=== PATIENT | female | born 1990 | race African-American/Black ===

== ENCOUNTER 2018-10-05 09:39 | Emergency (ER) | payer OTHER, MEDICAID ==
[~2018-10-05] VITALS: Ht 170.2 cm; Wt 79.8 kg
[~2018-10-05 09:39] MED LIST: OXCA300T19 PO
[2018-10-05] MEDS ORDERED: IBUPROFEN 400 MG TABLET. PO ONE (10:00)
--- NOTE | 2018-10-05 10:19 | PHYS DOC ---
Past Medical History Past Medical History: Seizure Past Surgical History: Other Additional Past Surgical Histo: Left ear Alcohol Use: None Drug Use: None Adult General Chief Complaint Chief Complaint: LOWEREXTREMITY INJURY HPI HPI 27-year-old female presents to ER via POV for complaints of tripping over her niece 2 days ago causing her to fall onto a tiled floor. Patient reports since she has had mid to lower back pain and of right hip pain. Pt denies striking her head or having any head pain, seizures, dizziness, or lightheadedness. Patient reports she has had some intermittent right side neck pain denying difficulty with range of motion. Patient reports she has had intermittent right knee pain since the fall denies any difficulty of range of motion. Patient denies swelling in extremities. Patient denies open wounds. She reports she took Advil 200 mg at 7:30 this morning denying any other [id number] medications for pain. Pt reports she has broke her tailbone in past. Pt denies bowel or bladder incontinence, saddle anesthesia, or change in bowel pattern. Patient denies difficulty or inability to walk. Pt denies numbness or tingling. LMP 09/11/18. Review of Systems Review of Systems Constitutional: Denies lethargy Eyes: Denies change in visual acuity or eye pain [] HENT: Denies facial pain/injury Respiratory: Denies cough or shortness of breath [] Cardiovascular: Denies CP GI: Denies abdominal pain, nausea, vomiting, bloody stools or diarrhea [] : Denies dysuria or hematuria. Denies incontinence of bowel/bladder Musculoskeletal: Reports mid to lower back/tailbone pain. Reports rt hip pain Integument: Denies abrasions, bruising or swelling Neurologic: Denies headache, focal weakness or sensory changes. Denies dizziness /lightheadedness All other systems were reviewed and found to be within normal limits, except as documented in this note. Current Medications Current Medications Current Medications Medications (Trade) Dose Ordered Sig/Rona Start Time Stop Time Status Last Admin Dose Admin Ibuprofen (Motrin) 400 mg 1X ONCE 10/05/18 10:00 10/05/18 10:03 DC 10/05/18 10:19 400 MG Allergies Allergies Allergies Coded Allergies Type Severity Reaction Last Updated Verified No Known Drug Allergies 07/27/15 No Physical Exam Physical Exam Constitutional: Well developed, well nourished, no acute distress, non-toxic appearance. [] HENT: Normocephalic, atraumatic, bilateral ears normal, oropharynx moist, no oral exudates, nose normal. [] Eyes: Pupils equal, conjunctiva normal, no discharge. [] Neck: Normal range of motion, tender to palp. rt lateral neck- no swelling/ crepitus. No midline cervical tenderness on palp. or palp. deformity, supple, no stridor. Trachea midline Cardiovascular:Heart rate regular rhythm, no murmur [] Lungs & Thorax: Bilateral breath sounds clear to auscultation. Resp. equal/ nonlabored. No chest wall tenderness Abdomen: Bowel sounds normal, soft, no tenderness, no masses, no pulsatile masses. [] Skin: Warm, dry, no erythema, no rash. [] Back: Tender to palp. lower midline thoracic into lumbar- no swelling/palp deformity, no CVA tenderness. [] Extremities: Pelvis stable/nontender. Tender to palp. rt lateral hip- no palp. deformity ROM intact- no visible injury found on exam, no cyanosis, no clubbing , ROM intact all extremities, no edema. [] Neurologic: Alert and oriented X 3, normal motor function, normal sensory function, no focal deficits noted. [] Psychologic: Affect normal, judgement normal, mood normal. [] Current Patient Data Vital Signs Vital Signs Date Time Temp Pulse Resp B/P (MAP) Pulse Ox O2 Delivery O2 Flow Rate FiO2 10/05/18 10:45 76 18 156/98 (117) 96 Room Air 10/05/18 09:45 98.6 98.6 EKG EKG [] Radiology/Procedures Radiology/Procedures PROCEDURE: LUMBAR SPINE 2-3V 3 views thoracic spine 3 views lumbar spine dated 10/05/2018. No comparison available. CLINICAL INDICATION: Pain after fall. FINDINGS: 3 views of thoracic and lumbar spine show normal sagittal alignment. Vertebral body heights are maintained. Posterior elements are grossly intact. No apparent fracture. Minimal endplate hypertrophic changes throughout. Mild arthrosis lower lumbar apophyseal joints. IMPRESSION: 1. No acute abnormality of the thoracic or lumbar spine. 2. Mild multilevel spondylosis. Electronically signed by: Willy Lara MD (10/05/2018 11:01 AM) [facility] DICTATED and SIGNED BY: WILLY LARA MD DATE: 10/05/18 1100 PROCEDURE: HIP RIGHT 2 VIEW Two-view right hip dated 10/05/2018. No comparison available. Clinical data indication: Pain after injury. FINDINGS: 2 views right hip show normal bony alignment. No displaced fracture. No acute osseous or articular abnormality. There is mild outward convex deformity of the lateral femoral head/neck junction. No significant degenerative changes. IMPRESSION: 1. No acute radiographic abnormality. 2. Mild outward convexity of the lateral head/neck junction, raising the question of femoral acetabular impingement. Electronically signed by: Willy Lara MD (10/05/2018 11:02 AM) [facility] DICTATED and SIGNED BY: WILLY LARA MD DATE: 10/05/18 110 Course & Med Decision Making Course & Med Decision Making Pertinent Imaging studies reviewed. (See chart for details) Discussed imaging reports with pt with no acute finding for obvious fx/ dislocation- discussed report of "femoral acetabular impingement" and advised f/ u with orthopedics for further eval/care. Patient remains neuro and vascular intact in bilateral lower extremities. Patient is alert and oriented 3 and in no visible distress. Patient has been ambulatory to the bathroom with steady unassisted gait. Patient was provided dose of ibuprofen while in the ER was reports her pain has improved. Education provided on signs and symptoms to return to ER for an discharge instructions were discussed. Will provide orthopedic referral information on discharge paperwork. Patient advised on use of [id number] Tylenol and/or ibuprofen as needed and as directed on container for pain. Dragon Disclaimer Dragon Disclaimer This electronic medical record was generated, in whole or in part, using a voice recognition dictation system. Departure Departure Impression: Primary Impression: Back pain Additional Impressions: Hip pain, right Fall Disposition: HOME, SELF-CARE Condition: STABLE Referrals: NO PCP (PCP) ÁLVARO ROSARIO MD orthopedic doctor Patient Instructions: Back Pain, Adult, Fall Prevention and Home Safety, Hip Pain Additional Instructions: If symptoms persist you should follow-up with orthopedic doctor for further care and evaluation. You can take Tylenol and/or ibuprofen as directed on container as needed for pain. Ice pack to affected area every 3-4 hours for 20- 30 minutes at a time avoid direct contact of ice to skin. Problem Qualifiers FLO ESTRELLA APRN Oct 05, 2018 10:19
[2018-10-05 10:45] VITALS: BP 156/98
--- NOTE | 2018-10-05 11:04 | RAD ---
3 views thoracic spine 3 views lumbar spine dated 10/05/2018. No comparison available. CLINICAL INDICATION: Pain after fall. FINDINGS: 3 views of thoracic and lumbar spine show normal sagittal alignment. Vertebral body heights are maintained. Posterior elements are grossly intact. No apparent fracture. Minimal endplate hypertrophic changes throughout. Mild arthrosis lower lumbar apophyseal joints. IMPRESSION: 1. No acute abnormality of the thoracic or lumbar spine. 2. Mild multilevel spondylosis. Electronically signed by: Willy Lara MD (10/05/2018 11:01 AM) [facility]
--- NOTE | 2018-10-05 11:04 | RAD ---
3 views thoracic spine 3 views lumbar spine dated 10/05/2018. No comparison available. CLINICAL INDICATION: Pain after fall. FINDINGS: 3 views of thoracic and lumbar spine show normal sagittal alignment. Vertebral body heights are maintained. Posterior elements are grossly intact. No apparent fracture. Minimal endplate hypertrophic changes throughout. Mild arthrosis lower lumbar apophyseal joints. IMPRESSION: 1. No acute abnormality of the thoracic or lumbar spine. 2. Mild multilevel spondylosis. Electronically signed by: Willy Lara MD (10/05/2018 11:01 AM) [facility]
--- NOTE | 2018-10-05 11:05 | RAD ---
Two-view right hip dated 10/05/2018. No comparison available. Clinical data indication: Pain after injury. FINDINGS: 2 views right hip show normal bony alignment. No displaced fracture. No acute osseous or articular abnormality. There is mild outward convex deformity of the lateral femoral head/neck junction. No significant degenerative changes. IMPRESSION: 1. No acute radiographic abnormality. 2. Mild outward convexity of the lateral head/neck junction, raising the question of femoral acetabular impingement. Electronically signed by: Willy Lara MD (10/05/2018 11:02 AM) [facility]
== END 2018-10-05 11:27 | disposition home or self-care (01) ==
LOC: ER 09:39
DX: M25.551 Pain in right hip (principal); M54.5 Low back pain; M54.6 Pain in thoracic spine; M47.896 Other spondylosis, lumbar region; M25.561 Pain in right knee; W01.0XXA Fall on same level from slipping, tripping and stumbling without subsequent striking against object, initial encounter; Y93.89 Activity, other specified; Y92.89 Other specified places as the place of occurrence of the external cause; Y99.8 Other external cause status
CPT/HCPCS: 72072; 72100; 73502; 99284

== ENCOUNTER 2021-05-07 14:51 | Emergency (ER) | payer MEDICARE, MEDICAID ==
[~2021-05-07] VITALS: Ht 170.2 cm; Wt 83.6 kg
[2021-05-07 15:10] VITALS: BP 134/64
--- NOTE | 2021-05-07 15:57 | RAD ---
EXAM: XR KNEE _4 VIEWS WITH PATELLA_LT 05/07/2021 3:31 PM CLINICAL INDICATION: Pain after injury COMPARISON: None TECHNIQUE: 4 views of the left knee FINDINGS: No acute fracture. Alignment is normal. Joint spaces are maintained. No joint effusion or soft tissue abnormality. IMPRESSION: Normal left knee radiograph. Electronically signed by: Quynh Avalos MD (05/07/2021 3:54 PM) [id number]
[2021-05-07] MEDS ORDERED: IBUPROFEN 200 MG TABLET. PO ONE (16:00)
--- NOTE | 2021-05-07 16:06 | PHYS DOC ---
Past Medical History Past Medical History: Hypertension, Seizure (TIMMY CURRIE [employer]) Past Surgical History: Other Additional Past Surgical Histo: Left ear "reconstruction" (TIMMY CUR[employer]E [employer]) Smoking Status: Never Smoker Alcohol Use: None Drug Use: Marijuana (TIMMY CURRIE [employer]) General Adult EDM: Chief Complaint: KNEE INJURY HPI: HPI: Patient is a 30 year old female who presents with sitting on the couch her son was trying to climb up on the couch and he grabbed a hold of her left knee to help pull himself up on the couch and she states that she felt a pop and thought it was dislocated but went back. She now has knee pain. She is able to walk on the knee and bend it fully. She denies any numbness or tingling. Rates her pain a 7 out of 10. She states she did not take any pain medicine. She states is throbbing. (TIMMY CUR[employer]E [employer]) Review of Systems: Review of Systems: Constitutional: Denies fever or chills. [] Eyes: Denies change in visual acuity. [] HENT: Denies nasal congestion or sore throat. [] Respiratory: Denies cough or shortness of breath. [] Cardiovascular: Denies chest pain or + left knee edema. [] GI: Denies abdominal pain, nausea, vomiting, bloody stools or diarrhea. [] : Denies dysuria. [] Musculoskeletal: Denies back pain or + left knee joint pain. [] Integument: Denies rash. [] Neurologic: Denies headache, focal weakness or sensory changes. [] Endocrine: Denies polyuria or polydipsia. [] Lymphatic: Denies swollen glands. [] Psychiatric: Denies depression or anxiety. [] (TIMMY CUR[employer]E [employer]) Heart Score: C/O Chest Pain: No Risk Factors: Risk Factors: DM, Current or recent (<one month) smoker, HTN, HLP, family history of CAD, obesity. Risk Scores: Score 0 - 3: 2.5% MACE over next 6 weeks - Discharge Home Score 4 - 6: 20.3% MACE over next 6 weeks - Admit for Clinical Observation Score 7 - 10: 72.7% MACE over next 6 weeks - Early Invasive Strategies (TIMMY CURRIE APRN) Current Medications: Current Medications Medications (Trade) Dose Ordered Sig/Rona Start Time Stop Time Status Last Admin Dose Admin Ibuprofen (Motrin) 600 mg 1X ONCE 05/07/21 16:00 05/07/21 16:01 DC 05/07/21 15:53 600 MG (TIMMY CURRIE APRN) Allergies: Allergies: Allergies Coded Allergies Type Severity Reaction Last Updated Verified No Known Drug Allergies 07/27/15 No (TIMMY CURRIE APRN) Physical Exam: PE: Constitutional: Well developed, well nourished, no acute distress, non-toxic appearance. [] HENT: Normocephalic, atraumatic, bilateral external ears normal, oropharynx moist, no oral exudates, nose normal. [] Eyes: PERRLA, EOMI, conjunctiva normal, no discharge. [] Neck: Normal range of motion, no tenderness, supple, no stridor. [] Cardiovascular:Heart rate regular rhythm, no murmur [] Lungs & Thorax: Bilateral breath sounds clear to auscultation [] Abdomen: Bowel sounds normal, soft, no tenderness, no masses, no pulsatile masses. [] Skin: Warm, dry, no erythema, no rash. [] Back: No tenderness, no CVA tenderness. [] Extremities: Left anterior knee tenderness, no cyanosis, no clubbing, ROM intact, 1+ edema. [] Neurologic: Alert and oriented X 3, normal motor function, normal sensory function, no focal deficits noted. [] Psychologic: Affect normal, judgement normal, mood normal. [] (TIMMY CURRIE APRN) Current Patient Data: Vital Signs: Vital Signs Date Time Temp Pulse Resp B/P (MAP) Pulse Ox O2 Delivery O2 Flow Rate FiO2 05/07/21 15:10 97.0 81 18 134/64 (87) 98 Room Air 97.0 (TIMMY CURRIE APRN) EKG: EKG: [] (TIMMY CURRIE APRN) Radiology/Procedures: Radiology/Procedures: [] Impression: [facility] [address] [place] [address] IMAGING REPORT Signed PATIENT: RAMBO YEN LACCOUNT: [id number] : 1990 LOCATION: ER AGE: 30 SEX: F EXAM STATUS: REG ER ORD. PHYSICIAN: TIMMY CURRIE APRN REASON: pain after injury PROCEDURE: KNEE LEFT 4V EXAM: XR KNEE _4 VIEWS WITH PATELLA_LT 05/07/2021 3:31 PM CLINICAL INDICATION: Pain after injury COMPARISON: None TECHNIQUE: 4 views of the left knee FINDINGS: No acute fracture. Alignment is normal. Joint spaces are maintained. No joint effusion or soft tissue abnormality. IMPRESSION: Normal left knee radiograph. Electronically signed by: Quynh Avalos MD (05/07/2021 3:54 PM) [id number] DICTATED and SIGNED BY: QUYNH AVALOS MD DATE: 05/07/21 [id number] (TIMMY CURRIE APRN) Course & Med Decision Making: Course & Med Decision Making Pertinent Labs and Imaging studies reviewed. (See chart for details) See HPI. Alert and oriented x4. Ambulatory with a steady gait. Speaks in full clear sentences. Patient is placed in a knee immobilizer. X-ray shows no ac garima findings. There is a maybe 1+ edema. There is no deformity or laxity. She has full range of motion of the knee. Popliteal pulses strong and present. Cap refill less than 2 seconds. Skin pink warm and dry. Patient is also given crutches. [] (TIMMY CURRIE APRN) Dragon Disclaimer: Dragon Disclaimer: This electronic medical record was generated, in whole or in part, using a voice recognition dictation system. (TIMMY CURRIE APRN) Departure Departure Impression: Primary Impression: Knee pain, left Qualified Codes: M25.562 - Pain in left knee Disposition: HOME / SELF CARE / HOMELESS Condition: STABLE Referrals: NO PCP (PCP) ÁLVARO ROSARIO MD Patient Instructions: Knee Immobilization, Knee Sprain Additional Instructions: Follow-up with your primary care doctor or the orthopedic I have referred you to. Use ice to help with pain. Take ibuprofen to help with pain. 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 I was available for consultation as needed during the patient's visit in the emergency department. I agree with the clinical impression, plan, and disposition. (EDA STOKES DO) TIMMY CURRIE APRN May 07, 2021 16:06 EDA STOKES DO May 08, 2021 14:38
[2021-05-07] MEDS ORDERED: IBUP-1007 PO (16:08)
== END 2021-05-07 16:40 | disposition home or self-care (01) ==
LOC: ER 14:51
DX: M25.562 Pain in left knee (principal); I10 Essential (primary) hypertension
CPT/HCPCS: 29505; 73564; 99283

== ENCOUNTER → 2021-06-11 | Outpatient (CLI) | payer MEDICARE, MEDICAID ==
[~2021-06-11] MED LIST changes: +IBUP-1007 PO
--- NOTE | 2021-06-11 13:02 | [facility] ---
STUDY: MRI of the left knee without contrast INDICATION: Left knee pain. COMPARISON: No prior MRI. TECHNIQUE: Multiplanar MR imaging of the left knee performed without the use of intravenous or intra- articular contrast. FINDINGS: Menisci: Both the medial and lateral menisci are somewhat diminutive but without a discrete tear. The configuration is favored developmental. Cruciate ligaments: Intact ACL and PCL. Collateral ligaments: Intact medial and lateral collateral ligaments. No retinacular disruption. Unre markable IT band. Tendons: Mild signal elevation within the proximal patellar tendon but with normal intervening tendon fibers. No advanced tendinosis or focal tendon tear. Cartilage: Patellofemoral: Possible small chondral delamination at the lower margin of the medial patellar facet , image 9 series 3, though this may be artifactual. Subtle chondrosis at the far peripheral aspect of the lateral trochlea, image 12 series 3. Lateral compartment: Subchondral marrow edema at the periphery of the lateral tibial plateau could ei ther be related to overlying chondrosis or mild contusive injury. Note is made of pulsation artifact extending through the posterior nonweightbearing lateral femoral condyle cartilage on the axial T2 se quence. Medial compartment: No focal chondral defect is apparent. Bones: Noting the limitations of MRI, apparent patella kimberley. The patella is laterally tilted increase d TT-TG distance measuring 20 mm. Miscellaneous: Edema at the superolateral aspect of Hoffa's fat. Small amount of fluid within the oj p infrapatellar bursa. Small Song's cyst. No significant knee joint effusion. IMPRESSION: 1. Lateral patellar tilting, increased TT-TG distance of approximately 20 mm and MR evidence for pat martha kimberley. There is also edema at the superolateral aspect of Hoffa's fat. The collective findings ca n be seen with patellar maltracking/patellar tendon lateral femoral condyle friction syndrome. The MP FL is intact. Note is made of subchondral marrow edema at the periphery of the lateral femoral condyl e but the location is not typical of impaction from a recent lateral patellar dislocation/relocation event. This edema could either be related to chondrosis or mild contusion if there has been recent tr auma. 2. Intact menisci, cruciate ligaments and collateral ligaments. 3. Either artifact or a small chondral delamination at the inferior margin of the medial patellar fa cet (image 9 series 3). Subtle chondrosis at the far peripheral aspect of the lateral trochlea (image 12 series 3). 4. Small Song's cyst. Electronically signed by: SUSANNAH ILMON MD (06/11/2021 12:59 PM) [id number]
== END ==
LOC: KCIC MRI 10:43
PROVIDERS: ATTEND Orthopaedic Surgery
DX: M71.22 Synovial cyst of popliteal space [Baker], left knee (principal)
CPT/HCPCS: 73721